=== PATIENT | female | born 1930 | race Caucasian/White ===

== ENCOUNTER 2017-09-25 10:17 | Emergency (ER) | payer OTHER ==
[~2017-09-25] VITALS: Ht 162.6 cm; Wt 61.5 kg
[~2017-09-25 10:17] MED LIST: AMLO5TAB96 PO; LOVA20TA PO; NAPR250T57 PO; PANT20 PO; PERI8.6T PO; ULTR50TA PO
[2017-09-25 10:20] VITALS: BP 170/74; PULSE 83; RESP 16; TEMP 99.1; O2SAT 97
[2017-09-25] MEDS ORDERED: PANT40TA3 PO (10:36)
[2017-09-25] MEDS ORDERED: AMLO5TAB2 PO (10:36)
[2017-09-25] MEDS ORDERED: LOVA20TA PO (10:36)
--- NOTE | 2017-09-25 11:56 | PD ---
HPI Chief Complaint: Musculoskeletal Complaint Time Seen by Provider: 10:31 Travel History International Travel<30 days: No Contact w/Intl Traveler<30days: No Traveled to known affect area: No History of Present Illness HPI This is a 86-year-old female here with low back pain. Patient has a history of chronic low back pain with occasional flares requiring narcotic medication. She reports she usually receives spinal epidural injections and was scheduled to have one in August but due to insurance purposes she did not have the injection done. She has had increasing pain over the last week. She denies fever chills. No weight loss. Abdominal pain. No incontinence. No paresthesia or weakness of the extremity. Reports this pain is similar to her prior back pain which she has had for over 2 years. 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 She underwent chemotherapy and radiation in 2015. She had a negative PET scan 2017. The pain in the back is localized to the lumbar spine and reproducible to palpation. Pain is slightly improved with Tylenol. Symptom severity is moderate. PFSH Past Medical History Arthritis: Yes Asthma: Yes Autoimmune Disease: No Heart Rhythm Problems: Yes (PT HAS AN ENLARGED HEART) Cancer: Yes (uterine cancer) Cardiac Catheterization: No Cardiovascular Problems: No High Cholesterol: Yes Chemotherapy: Yes Congestive Heart Failure: No Diabetes: No Diminished Hearing: Yes (wears hearing aides, right hearing aide in ) Endocrine: No Gastrointestinal Disorders: Yes GERD: Yes Glaucoma: No Genitourinary: No Hepatitis: No Hiatal Hernia: Yes Hypertension: Yes Immune Disorder: No Medical other: Yes (reflux arthriits,BROKEN BIG TOE LEFT FOOT) Musculoskeletal: Yes (osteoporosis) Neurologic: No Psychiatric: No Reproductive: Yes (PARTIAL HYSTERECTOMY) Respiratory: No Immunizations Current: Yes Myocardial Infarction: No Thyroid Disease: No Past Surgical History Abdominal Surgery: Yes (abd tumor removed) AICD: No Cardiac Surgery: No Coronary Artery Bypass Graft: No Ear Surgery: No Endocrine Surgery: No Eye Surgery: Yes (CATARACT) Genitourinary Surgery: No Gynecologic Surgery: Yes (partial hysterectomy) Hysterectomy: Yes Joint Replacement: No Neurologic Surgery: Yes ("1997,tumor removed from in between brain and covering ") Oral Surgery: No Pacemaker: No Other Surgery: Yes (cranial tumor removed) Family History Family Myocardial Infarction: Yes Social History Alcohol Use: Yes (rare) Tobacco Use: No (former) Substance Use: No Allergies-Medications (Allergen,Severity, Reaction): Coded Allergies: No Known Allergies (Verified Adverse Reaction, Unknown, 09/25/17) Reported Meds & Prescriptions Reported Meds & Active Scripts Active Reported Pantoprazole (Pantoprazole Sodium) 40 Mg Tab 40 Mg PO DAILY Lovastatin 20 Mg Tab 20 Mg PO HS Amlodipine (Amlodipine Besylate) 5 Mg Tab 5 Mg PO DAILY Review of Systems Except as stated in HPI: all other systems reviewed are Neg General / Constitutional: No: Fever Eyes: No: Visual changes HENT: No: Headaches Cardiovascular: No: Chest Pain or Discomfort Respiratory: No: Shortness of Breath Gastrointestinal: No: Abdominal Pain Genitourinary: No: Dysuria Musculoskeletal: Positive: Pain (lumbar pain) Skin: No Rash Neurologic: No: Weakness Psychiatric: No: Depression Physical Exam Narrative GENERAL: Alert and well-appearing 86-year-old female SKIN: Warm and dry. HEAD: Atraumatic. Normocephalic. EYES: No injection or drainage. NECK: Supple CARDIOVASCULAR: Regular rate and rhythm. RESPIRATORY: No accessory muscle use. Clear to auscultation. Breath sounds equal bilaterally. GASTROINTESTINAL: Abdomen soft, non-tender, nondistended. Hepatic and splenic margins not palpable. No rebound or guarding MUSCULOSKELETAL: Extremities without clubbing, cyanosis, or edema. No obvious deformities. Patient ambulatory with steady gait NEUROLOGICAL: Awake and alert. No obvious cranial nerve deficits. Motor grossly within normal limits. Five out of 5 muscle strength in the arms and legs. Normal speech. BACK: No CVA tenderness. No rash. +TTP lumbar spine. Data Data Last Documented VS Vital Signs Date Time Temp Pulse Resp B/P (MAP) Pulse Ox O2 Delivery O2 Flow Rate FiO2 09/25/17 10:20 99.1 83 16 170/74 (106) [address] Lumb Spine W/O Contrast (09/25/17 10:45) Oxycodone-Acetamin 5-325 Mg (Percocet (09/25/17 12:30) MDM Medical Decision Making Medical Screen Exam Complete: Yes Emergency Medical Condition: Yes Differential Diagnosis Lumbar strain, herniated disc, metastatic CA Narrative Course This is a 86-year-old female here with acute low back pain. She has a history of chronic back pain reports this pain is similar and in the same location as her previous episodes. She has a normal neurologic exam. She has tenderness of the lumbar spine exclusively. 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 She had a negative PET scan last year. She has a follow-up appointment this month. CT lumbar spine: No acute findings Discussed the findings patient. On reassessment patient is reporting symptom improvement. She'll be discharged home with a prescription for [place]. She agrees to follow up with her primary doctor this week for recheck. Diagnosis Primary Impression: Back pain Qualified Codes: M54.5 - Low back pain Referrals: Primary Care Physician Additional Instructions: Medication as directed. Follow-up with her primary doctor. Return if he developed new or worsening symptoms. Scripts Hydrocodone-Acetaminophen ([place]) 5 Mg-325 Mg Tab 1 TAB PO Q6H Y for PAIN, #12 TAB 0 Refills Prov: Marnie Ruiz 09/25/17 Disposition: 01 DISCHARGE HOME Condition: Stable Marnie Ruiz Sep 25, 2017 11:56
--- NOTE | 2017-09-25 12:12 | RADRPT ---
EXAM DATE/TIME: 09/25/2017 11:27 [facility] COMPARISON: CT LUMBAR SPINE W/O CONTRAST, December 27, 2014, 11:36. INDICATIONS : Lower back pain, difficulty ambulating. RADIATION DOSE: 36.11 CTDIvol (mGy) MEDICAL HISTORY : Hypertension. Hernia, hiatal. Gastroesophageal reflux disease.Uterine cancer. SURGICAL HISTORY : Hysterectomy. ENCOUNTER: Initial ACUITY: 2 weeks PAIN SCALE: 8/10 LOCATION: Bilateral lower back. TECHNIQUE: Volumetric scanning of the lumbar spine was performed. Multiplanar reconstructions in the sagittal, coronal and oblique axial planes were performed. Using automated exposure control and adjustment of the mA and/or kV according to patient size, radiation dose was kept as low as reasonably achievable t o obtain optimal diagnostic quality images. DICOM format image data is available electronically for review and comparison. FINDINGS: There is diffuse osteopenia. Vertebral body height is maintained. No evidence of spondylolisthesis. Mild left lumbar scoliosis is stable from prior. No fractures seen. Advanced hypertrophic changes in the posterior elements of L5-S1. No evidence of pars defect. Calcification within the L4-5 disc is similar to prior. T12-L1: The thecal sac has a normal diameter. No evidence of disc bulge or protrusion. The neural foramina are patent bilaterally. L1-L2: The thecal sac has a normal diameter. No evidence of disc bulge or protrusion. The neural foramina are patent bilaterally. L2-L3: The thecal sac has a normal diameter. No evidence of disc bulge or protrusion. The neural foramina are patent bilaterally. L3-L4: The thecal sac has a normal diameter. No evidence of disc bulge or protrusion. The neural foramina are patent bilaterally. L4-L5: Broad-based bulging of the disc flattens the ventral margin of the thecal sac. There is asymmetric e xtension into the neural foramen on the right without evidence of neural impingement. The neural for amen are patent. The overall appearance is unchanged when compared to 2014. L5-S1: Broad-based bulging of the disc causes minimal flattening of the ventral margin of the thecal sac, un changed from prior. CONCLUSION: 1. Mild disc bulging L4-5 and L5-S1 with asymmetric extension into the neural foramen on the right at L4-5, stable in configuration compared to December 2014. 2. Stable mild left lumbar scoliosis. Osteopenia. Deangelo Gregory MD on September 25, 2017 at 12:00 Board Certified Radiologist. This report was verified electronically.
[2017-09-25] MEDS ORDERED: NORC5TAB PO (12:19)
[2017-09-25] MEDS ORDERED: oxyCODONE/ACETAMINOPHEN 5 MG/325 MG TAB PO ONE (12:30)
[2017-09-25] MEDS ORDERED: KETOROLAC TROMETHAMINE 60 MG/2 ML (IM) VIAL IM ONE (12:30)
== END 2017-09-25 12:37 | disposition home or self-care (01) ==
LOC: PHEFT 10:17
DX: M54.5 Low back pain (principal); M41.9 Scoliosis, unspecified; M19.90 Unspecified osteoarthritis, unspecified site; J45.909 Unspecified asthma, uncomplicated; E78.00 Pure hypercholesterolemia, unspecified; K21.9 Gastro-esophageal reflux disease without esophagitis; I10 Essential (primary) hypertension; M81.0 Age-related osteoporosis without current pathological fracture; Z87.891 Personal history of nicotine dependence
CPT/HCPCS: 72131; 96372; 99283; J1885

== ENCOUNTER 2017-12-14 11:53 | Observation (INO) | payer OTHER ==
[2017-12-14] VITALS (7 sets, daily range): BP systolic 139–168; BP diastolic 64–72; PULSE 66–92; RESP 16–20; TEMP 96.9–98.3; O2SAT 98–99
[~2017-12-14] VITALS: Ht 162.6 cm; Wt 59.1 kg
[~2017-12-14 11:53] MED LIST changes: +AMLO5TAB2 PO; -AMLO5TAB96 PO; -NAPR250T57 PO; +NORC5TAB PO; -PANT20 PO; +PANT40TA3 PO; -PERI8.6T PO; -ULTR50TA PO
--- NOTE | 2017-12-14 12:11 | PD ---
HPI Chief Complaint: Chest pain Time Seen by Provider: 12:04 Travel History International Travel<30 days: No Contact w/Intl Traveler<30days: No Traveled to known affect area: No History of Present Illness HPI 87-year-old female with history of squamous cell carcinoma of the vagina treated in 2014, reevaluated most recently in June 2017 and found to be without recurrence of disease, here for evaluation of chest pain. Patient reports that the pain started this morning after waking up. She has left-sided chest pain that she describes as sharp, radiates to her left shoulder and underneath her left shoulder blade. Pain is worse with movements, is moderate, improved with rest. She denies trauma. No dyspnea. No history of cardiac disease. No family history of cardiac disease. She is a non-smoker. No fevers or recent illness. No paresthesias or motor deficits. PFSH Past Medical History Arthritis: Yes Asthma: Yes Autoimmune Disease: No Heart Rhythm Problems: Yes (PT HAS AN ENLARGED HEART) Cancer: Yes (uterine cancer) Cardiac Catheterization: No Cardiovascular Problems: No High Cholesterol: Yes Chemotherapy: Yes Congestive Heart Failure: No Diabetes: No Diminished Hearing: Yes (wears hearing aides, right hearing aide in ) Endocrine: No Gastrointestinal Disorders: Yes GERD: Yes Glaucoma: No Genitourinary: No Hepatitis: No Hiatal Hernia: Yes Hypertension: Yes Immune Disorder: No Musculoskeletal: Yes (osteoporosis) Neurologic: No Psychiatric: No Reproductive: Yes (PARTIAL HYSTERECTOMY) Respiratory: No Immunizations Current: Yes Myocardial Infarction: No Thyroid Disease: No Past Surgical History Abdominal Surgery: Yes (abd tumor removed) AICD: No Cardiac Surgery: No Coronary Artery Bypass Graft: No Ear Surgery: No Endocrine Surgery: No Eye Surgery: Yes (CATARACT) Genitourinary Surgery: No Gynecologic Surgery: Yes (partial hysterectomy) Hysterectomy: Yes Joint Replacement: No Neurologic Surgery: Yes ("1997,tumor removed from in between brain and covering ") Oral Surgery: No Pacemaker: No Other Surgery: Yes (cranial tumor removed) Social History Alcohol Use: Yes (rare) Tobacco Use: No (former) Substance Use: No Allergies-Medications (Allergen,Severity, Reaction): Coded Allergies: No Known Allergies (Verified Adverse Reaction, Unknown, 12/14/17) Reported Meds & Prescriptions Reported Meds & Active Scripts Active Reported Multiple Vitamin 1 Tab 1 Tab PO DAILY Aspirin 81 (Aspirin) 81 Mg Tabdr 81 Mg PO DAILY Pantoprazole (Pantoprazole Sodium) 40 Mg Tab 40 Mg PO DAILY Lovastatin 20 Mg Tab 20 Mg PO HS Amlodipine (Amlodipine Besylate) 5 Mg Tab 5 Mg PO DAILY Review of Systems Except as stated in HPI: all other systems reviewed are Neg Physical Exam Narrative GENERAL: Well-developed, well-nourished, comfortable, no apparent distress. SKIN: Focused skin assessment warm/dry. No rash. HEAD: Atraumatic. Normocephalic. EYES: Pupils equal and round. No scleral icterus. No injection or drainage. ENT: Mucous membranes pink and moist. NECK: Trachea midline. No JVD. CARDIOVASCULAR: Regular rate and rhythm. Distal pulses brisk and equal bilaterally. RESPIRATORY: No accessory muscle use. Clear to auscultation. Breath sounds equal bilaterally. GASTROINTESTINAL: Abdomen soft, non-tender, nondistended. MUSCULOSKELETAL: No obvious deformities. No clubbing. No cyanosis. No edema. NEUROLOGICAL: Awake and alert. No obvious cranial nerve deficits. Motor grossly within normal limits. Normal speech. PSYCHIATRIC: Appropriate mood and affect; insight and judgment normal. Data Data Last Documented VS Vital Signs Date Time Temp Pulse Resp B/P (MAP) Pulse Ox O2 Delivery O2 Flow Rate FiO2 12/14/17 12:40 16 98 Room Air 12/14/17 12:10 72 12/14/17 11:58 98.3 152/72 (98) Orders Orders Ckmb (Isoenzyme) Profile (12/14/17 12:07) Complete Blood Count With Diff (12/14/17 12:07) Comprehensive Metabolic Panel (12/14/17 12:07) Magnesium (Mg) (12/14/17 12:07) Prothrombin Time / Inr (Pt) (12/14/17 12:07) Act Partial Throm Time (Ptt) (12/14/17 12:07) Troponin I (12/14/17 12:07) Lipase (12/14/17 12:07) Ecg Monitoring (12/14/17 12:07) Iv Access Insert/Monitor (12/14/17 12:07) Oximetry (12/14/17 12:07) Aspirin Chew (Aspirin Chew) (12/14/17 12:15) Sodium Chloride 0.9% Flush (Ns Flush) (12/14/17 12:15) Chest, Pa & Lat (12/14/17 12:07) D-Dimer (12/14/17 12:00) CKMB (12/14/17 12:00) CKMB% (12/14/17 12:00) Ct Pulmonary Angiogram (12/14/17 ) Iohexol 350 Inj (Omnipaque 350 Inj) (12/14/17 14:23) Electrocardiogram (12/14/17 11:56) Place In Observation (12/14/17 15:05) Activity Bed Rest With Brp (12/14/17 15:05) Vital Signs (Adult) Q4H (12/14/17 15:05) Cardiac Rhythm .As Directed (12/14/17 15:) Notify Dr: Other .PRN (12/14/17 15:05) Notify . Parameters (12/14/17 15:05) Resp Oxygen Nasal Cannula (12/14/17 ) Diet Npo (12/15/17 Breakfast) Diet Heart Healthy (12/14/17 Dinner) Ckmb (Isoenzyme) Profile (12/14/17 15:05) Ckmb (Isoenzyme) Profile (12/14/17 18:05) Troponin I (12/14/17 15:05) Troponin I (12/14/17 18:05) Electrocardiogram (12/14/17 15:05) Electrocardiogram (12/14/17 18:05) ^ Obtain (12/14/17 15:05) Sodium Chloride 0.9% Flush (Ns Flush) (12/14/17 15:15) Sodium Chloride 0.9% Flush (Ns Flush) (12/14/17 21:00) Acetaminophen (Tylenol) (12/14/17 15:15) Morphine Inj (Morphine Inj) (12/14/17 15:15) Nitroglycerin Sl (Nitrostat Sl) (12/14/17 15:15) Aspirin (Aspirin) (12/15/17 09:00) Search Specialist / Telemetry [email or web address] (12/14/17 15:05) Labs Laboratory Tests Test 12/14/17 12:00 White Blood Count 4.4 TH/MM3 Red Blood Count 4.03 MIL/MM3 Hemoglobin 11.5 GM/DL Hematocrit 35.1 % Mean Corpuscular Volume 87.1 FL Mean Corpuscular Hemoglobin 28.5 PG Mean Corpuscular Hemoglobin Concent 32.8 % Red Cell Distribution Width 14.3 % Platelet Count 213 TH/MM3 Mean Platelet Volume 8.3 FL Neutrophils (%) (Auto) 71.7 % Lymphocytes (%) (Auto) 15.6 % Monocytes (%) (Auto) 9.6 % Eosinophils (%) (Auto) 1.7 % Basophils (%) (Auto) 1.4 % Neutrophils # (Auto) 3.1 TH/MM3 Lymphocytes # (Auto) 0.7 TH/MM3 Monocytes # (Auto) 0.4 TH/MM3 Eosinophils # (Auto) 0.1 TH/MM3 Basophils # (Auto) 0.1 TH/MM3 CBC Comment DIFF FINAL Differential Comment Prothrombin Time 10.1 SEC Prothromb Time International Ratio 1.0 RATIO Activated Partial Thromboplast Time 25.7 SEC D-Dimer Quantitative (PE/DVT) 0.57 MG/L FEU Blood Urea Nitrogen 16 MG/DL Creatinine 0.68 MG/DL Random Glucose 122 MG/DL Total Protein 6.5 GM/DL Albumin 3.3 GM/DL Calcium Level 8.5 MG/DL Magnesium Level 2.2 MG/DL Alkaline Phosphatase 86 U/L Aspartate Amino Transf (AST/SGOT) 15 U/L Alanine Aminotransferase (ALT/SGPT) 21 U/L Total Bilirubin 0.3 MG/DL Sodium Level 144 MEQ/L Potassium Level 3.9 MEQ/L Chloride Level 112 MEQ/L Carbon Dioxide Level 25.4 MEQ/L Anion Gap 7 MEQ/L Estimat Glomerular Filtration Rate 82 ML/MIN Total Creatine Kinase 115 U/L Creatine Kinase MB 2.3 NG/ML Troponin I LESS THAN 0.02 NG/ML Lipase 108 U/L [facility] Medical Decision Making Medical Screen Exam Complete: Yes Emergency Medical Condition: Yes Medical Record Reviewed: Yes Interpretation(s) EKG: Sinus, rate 73, leftward axis, normal intervals, no acute ischemic normality. Differential Diagnosis ACS, pneumothorax, pericarditis, PE, pneumonia, musculoskeletal pain Narrative Course Initial vital signs show heart rate 72, blood pressure 152/72, pulse ox 99% on room air, oral temperature 98.3F. CBC: WBC 4.4, hemoglobin 11.5, hematocrit 35.1, platelets 213, neutrophils 72%. CMP is essentially unremarkable. Lipase is 108. Cardiac enzymes are negative. D-dimer 0.57. Chest x-ray: No acute disease. CT pulmonary angiogram: No central PE. Lobulated 3.5 cm right breast mass. Patient was made aware of all findings. She states she has had this breast mass evaluated in the past with mammography and it was benign. She still has pain under her left shoulder blade. This pain could be a chest pain/cardiac equivalent, she will be admitted to the chest pain center for further cardiac evaluation. She is amenable to this plan. Case discussed with hospitalist Dr. Telles who will admit the patient to the chest pain center. Diagnosis Primary Impression: Chest pain Qualified Codes: R07.9 - Chest pain, unspecified Admitting Information Admitting Physician Requests: Observation Haris Torre MD December 14, 2017 12:11
[2017-12-14] MEDS ORDERED: ASPIRIN 81 MG CHEW TAB PO ONE (12:15)
[2017-12-14] MEDS ORDERED: SODIUM CHLORIDE 0.9% FLUSH 10 ML FLUSH IVF PRN (12:15)
[2017-12-14 12:25] LABS: AUTOMATED NEUTROPHIL # 3.1 TH/MM3 (1.8-7.7); BASOPHIL # 0.1 TH/MM3 (0-0.2); BASOPHIL % 1.4 % (0.0-2.0); EOSINOPHIL # 0.1 TH/MM3 (0-0.4); EOSINOPHIL % 1.7 % (0.0-4.0); HEMATOCRIT 35.1 % (35.0-46.0); HEMOGLOBIN 11.5 GM/DL (11.6-15.3); LYMPH % 15.6 % (9.0-44.0); LYMPHOCYTE # 0.7 TH/MM3 (1.0-4.8); MEAN CELL VOLUME 87.1 FL (80.0-100.0); MEAN CORPUSCULAR HEMOGLOBIN 28.5 PG (27.0-34.0); MEAN CORPUSCULAR HGB CONC 32.8 % (32.0-36.0); MEAN PLATELET VOLUME 8.3 FL (7.0-11.0); MONO % 9.6 % (0.0-8.0); MONOCYTE # 0.4 TH/MM3 (0-0.9); NEUT % 71.7 % (16.0-70.0); PLATELET COUNT 213 TH/MM3 (150-450); RED BLOOD COUNT 4.03 MIL/MM3 (4.00-5.30); RED CELL DISTRIBUTION WIDTH 14.3 % (11.6-17.2); WHITE BLOOD COUNT 4.4 TH/MM3 (4.0-11.0)
[2017-12-14] MEDS ORDERED: ASPI1TAB57 PO (12:26)
[2017-12-14] MEDS ORDERED: MULTTAB67 PO (12:26)
[2017-12-14 12:44] LABS: CHLORIDE 112 MEQ/L (98-107); SODIUM (NA) 144 MEQ/L (136-145)
[2017-12-14 12:47] LABS: CALCIUM 8.5 MG/DL (8.5-10.1)
[2017-12-14 12:48] LABS: ALBUMIN 3.3 GM/DL (3.4-5.0); BICARBONATE 25.4 MEQ/L (21.0-32.0); BLOOD UREA NITROGEN 16 MG/DL (7-18); GLUCOSE,RANDOM 122 MG/DL (74-106); MAGNESIUM 2.2 MG/DL (1.5-2.5)
[2017-12-14 12:50] LABS: ALT (GPT) 21 U/L (10-53)
[2017-12-14 12:51] LABS: AST (GOT) 15 U/L (15-37); CREATININE 0.68 MG/DL (0.50-1.00); GLOMERULAR FILTRATION RATE 82 ML/MIN (>89)
[2017-12-14 12:52] LABS: TOTAL BILIRUBIN ADULT 0.3 MG/DL (0.2-1.0); TOTAL PROTEIN 6.5 GM/DL (6.4-8.2)
[2017-12-14 12:53] LABS: ALKALINE PHOSPHATASE 86 U/L (45-117); PROTHROMBIN TIME - PATIENT 10.1 SEC (9.8-11.6)
[2017-12-14 12:54] LABS: D-DIMER 0.57 MG/L FEU (0.00-0.50)
[2017-12-14 12:56] LABS: TROPONIN I LESS THAN 0.02 NG/ML (0.02-0.05)
--- NOTE | 2017-12-14 13:05 | RADRPT ---
EXAM DATE/TIME: 12/14/2017 12:48 [facility] COMPARISON: No previous studies available for comparison. INDICATIONS : Left side chest pains today MEDICAL HISTORY : None. SURGICAL HISTORY : None. ENCOUNTER: Initial ACUITY: 1 day PAIN SCORE: 6/10 LOCATION: Left chest FINDINGS: PA and lateral views of the chest demonstrate the lungs to be symmetrically aerated without evidence of mass, infiltrate or effusion. Granuloma left upper lobe. The cardiomediastinal contours are unre markable. Osseous structures are intact. CONCLUSION: No acute disease. Keegan Sheppard MD FACR on December 14, 2017 at 13:02 Board Certified Radiologist. This report was verified electronically.
[2017-12-14] MEDS ORDERED: IOHEXOL 350 MG/ML 10 ML VIAL (for RAD DIAG) IVCONTRAST ONE (14:23)
--- NOTE | 2017-12-14 14:40 | RADRPT ---
EXAM DATE/TIME: 12/14/2017 14:14 [facility] COMPARISON: No previous studies available for comparison. INDICATIONS : Left chest pain. IV CONTRAST: 65 cc Omnipaque 350 (iohexol) IV RADIATION DOSE: 9.19 CTDIvol (mGy) MEDICAL HISTORY : Hypertension. Uterine camcer. SURGICAL HISTORY : Hysterectomy. Cranial tumor removed. ENCOUNTER: Initial ACUITY: 1 day PAIN SCALE: 5/10 LOCATION: chest TECHNIQUE: Volumetric scanning of the chest was performed using a pulmonary embolism protocol MIP images were re constructed. Using automated exposure control and adjustment of the mA and/or kV according to patien t size, radiation dose was kept as low as reasonably achievable to obtain optimal diagnostic quality images. DICOM format image data is available electronically for review and comparison. Follow-up recommendations for detected pulmonary nodules are based at a minimum on nodule size and pa tient risk factors according to Fleischner Society Guidelines. FINDINGS: The lungs are clear. There is no central pulmonary emboli Mild compensated cardiomegaly No axillary adenopathy. No mediastinal adenopathy. Lobulated 3.5 cm right breast mass Degenerative changes thoracic spine. CONCLUSION: No central pulmonary emboli Lobulated 3.5 cm right breast mass Keegan Sheppard MD FACR on December 14, 2017 at 14:36 Board Certified Radiologist. This report was verified electronically.
[2017-12-14] MEDS ORDERED: MORPHINE SULFATE 4 MG/ML INJ IV PUSH PRN (15:15)
[2017-12-14] MEDS ORDERED: ACETAMINOPHEN 500 MG CPLT PO PRN (15:15)
[2017-12-14] MEDS ORDERED: NITROGLYCERIN 0.4 MG SL 25 TABS/BTL SL PRN (15:15)
[2017-12-14] MEDS ORDERED: SODIUM CHLORIDE 0.9% FLUSH 10 ML FLUSH IV FLUSH PRN (15:15)
--- NOTE | 2017-12-14 17:38 | HHI.HP ---
[facility] Primary Care Physician Mor Gomes MD Admission Diagnosis Chest Pain Diagnoses: (1) Chest pain Diagnosis: Principal Chief Complaint: Chest pain Travel History International Travel<30 Days: No Contact w/Intl Traveler <30 Da: No Traveled to Known Affected Are: No History of Present Illness 87-year-old female with known history of hypertension, hyperlipidemia , gastroesophageal reflux who presented to the hospital because of left anterior chest and left shoulder pain. Patient was in her normal state of health until this morning when she was waiting for her breakfast to be served she developed a pain in the left anterior chest and into her left shoulder. Patient states that it was a pain that was 7/10 on a pain scale that remained constant and agonized by movement. Patient states that whenever she moved the pain would get worse. She stated the restaurant and ate her meal and went home. She states that she is sitting there reading the paper and whenever she tried to move, sit up she would have the pain that would be behind her left shoulder blade and into her left anterior chest. She states that the pain is constantly there at approximately 3/10 on pain scale and does worsen to 7/10 on a pain scale whenever she moves. Patient denies any nausea, vomiting, diaphoresis, shortness of breath. Patient indicates that she has had some lightheadedness. 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 Social History Patient denies any tobacco, alcohol or illicit drug Physical Exam Vital Signs Vital Signs Date Time Temp Pulse Resp B/P (MAP) Pulse Ox O2 Delivery O2 Flow Rate FiO2 12/14/17 16:59 97.8 66 20 168/71 (103) 99 12/14/17 16:31 99 21 12/14/17 16:27 12/14/17 15:30 68 16 142/68 (92) 99 Room Air 12/14/17 12:40 16 98 Room Air 12/14/17 12:10 72 Room Air 12/14/17 11:58 98.3 72 16 152/72 (98) 99 Physical Exam GENERAL: Well-developed, well-nourished, in no acute distress. alert and orientated HEENT: Head is normocephalic without any lesions or masses noted. Facial features are symmetric. Eyes: Pupils equal round reactive to light. Extraocular muscles are intact. Conjunctivae were clear. Oropharyngeal: Pharynx without any erythema edema. Tongue is midline without deviation. Buccal mucosa is moist without any masses or lesions NECK: Supple without any masses. Trachea midline no deviation. No JVD, no bruits are appreciated CARDIAC: Regular rhythm, regular rate. S1/S2 are heard. No murmurs gallops or rubs. LUNGS: Clear to auscultation bilaterally. No wheeze, rhonchi or rales. No use of accessory muscles on inspiration or expiration. ABDOMEN: Soft, nontender. Nondistended. Bowel sounds heard in all 4 quadrants. No organomegaly or masses. Negative rebound, negative guarding EXTREMITIES: No edema, pulses are equal bilaterally. No cyanosis or clubbing NEUROLOGY: Mood and affect appear appropriate. Cranial nerves II through XII grossly intact. Muscle strength 5/5 in upper and lower extremities bilaterally. Deep tendon reflexes are 2+ in upper and lower extremities bilaterally. Laboratory Laboratory Tests Test 12/14/17 12:00 White Blood Count 4.4 Red Blood Count 4.03 Hemoglobin 11.5 Hematocrit 35.1 Mean Corpuscular Volume 87.1 Mean Corpuscular Hemoglobin 28.5 Mean Corpuscular Hemoglobin Concent 32.8 Red Cell Distribution Width 14.3 Platelet Count 213 Mean Platelet Volume 8.3 Neutrophils (%) (Auto) 71.7 Lymphocytes (%) (Auto) 15.6 Monocytes (%) (Auto) 9.6 Eosinophils (%) (Auto) 1.7 Basophils (%) (Auto) 1.4 Neutrophils # (Auto) 3.1 Lymphocytes # (Auto) 0.7 Monocytes # (Auto) 0.4 Eosinophils # (Auto) 0.1 Basophils # (Auto) 0.1 CBC Comment DIFF FINAL Differential Comment Prothrombin Time 10.1 Prothromb Time International Ratio 1.0 Activated Partial Thromboplast Time 25.7 D-Dimer Quantitative (PE/DVT) 0.57 Blood Urea Nitrogen 16 Creatinine 0.68 Random Glucose 122 Total Protein 6.5 Albumin 3.3 Calcium Level 8.5 Magnesium Level 2.2 Alkaline Phosphatase 86 Aspartate Amino Transf (AST/SGOT) 15 Alanine Aminotransferase (ALT/SGPT) 21 Total Bilirubin 0.3 Sodium Level 144 Potassium Level 3.9 Chloride Level 112 Carbon Dioxide Level 25.4 Anion Gap 7 Estimat Glomerular Filtration Rate 82 Total Creatine Kinase 115 Creatine Kinase MB 2.3 Troponin I LESS THAN 0.02 Lipase 108 Result Diagram: 12/14/17 1200 12/14/17 1200 Imaging Last Impressions Chest X-Ray 12/14/17 1207 Signed Impressions: Service Date/Time: Thursday, December 14, 2017 12:48 - CONCLUSION: No acute disease. Keegan Sheppard MD FACR CT Angiography 12/14/17 0000 Signed Impressions: Service Date/Time: Thursday, December 14, 2017 14:14 - CONCLUSION: No central pulmonary emboli Lobulated 3.5 cm right breast mass Keegan Sheppard MD FACR Caprini VTE Risk Assessment Caprini VTE Risk Assessment: Mod/High Risk (score >= 2) Caprini Risk Assessment Model Point Value = 1 Point Value = 2 Point Value = 3 Point Value = 5 Age 41-60 Minor surgery BMI > 25 kg/m2 Swollen legs Varicose veins or History of unexplained or recurrent spontaneous Oral contraceptives or hormone replacement Sepsis (< 1 month) Serious lung disease, including pneumonia (< 1 month) Abnormal pulmonary function Acute myocardial infarction Congestive heart failure (< 1 month) History of inflammatory bowel disease Medical patient at bed rest Age 61-74 Arthroscopic surgery Major open surgery (> 45 min) Laparoscopic surgery (> 45 min) Malignancy Confined to bed (> 72 hours) Immobilizing plaster cast Central venous access Age >= 75 History of VTE Family history of VTE Factor V Leiden Prothrombin [id number] Lupus anticoagulant Anticardiolipin antibodies Elevated serum homocysteine Heparin-induced thrombocytopenia Other congenital or acquired thrombophilia Stroke (< 1 month) Elective arthroplasty Hip, pelvis, or leg fracture Acute spinal cord injury (< 1 month) Prophylaxis Regimen Total Risk Factor Score Risk Level Prophylaxis Regimen 0-1 Low Early ambulation 2 Moderate Order ONE of the following: *Sequential Compression Device (SCD) *Heparin 5000 units SQ BID 3-4 Higher Order ONE of the following medications: *Heparin 5000 units SQ TID *Enoxaparin/Lovenox 40 mg SQ daily (WT < 150 kg, CrCl > 30 mL/min) *Enoxaparin/Lovenox 30 mg SQ daily (WT < 150 kg, CrCl > 10-29 mL/min) *Enoxaparin/Lovenox 30 mg SQ BID (WT < 150 kg, CrCl > 30 mL/min) AND/OR *Sequential Compression Device (SCD) 5 or more Highest Order ONE of the following medications: *Heparin 5000 units SQ TID (Preferred with Epidurals) *Enoxaparin/Lovenox 40 mg SQ daily (WT < 150 kg, CrCl > 30 mL/min) *Enoxaparin/Lovenox 30 mg SQ daily (WT < 150 kg, CrCl > 10-29 mL/min) *Enoxaparin/Lovenox 30 mg SQ BID (WT < 150 kg, CrCl > 30 mL/min) AND *Sequential Compression Device (SCD) Assessment and Plan Assessment and Plan Chest pain, atypical -Patient with increased risk factors to include age, hypertension, hyperlipidemia, family history -We will continue ruled patient out for an acute coronary event with serial cardiac enzymes and serial EKGs -We will pursue myocardial perfusion study to rule out any underlying ischemia -Continue aspirin, nitroglycerin as needed -Continue monitor telemetry Hypertension, hyperlipidemia -Continue home medications DVT prevention -Sequential compression devices Problem Qualifiers (1) Chest pain: Qualified Codes: R07.9 - Chest pain, unspecified Nasir Trent December 14, 2017 17:37
[2017-12-14 17:58] LABS: TROPONIN I LESS THAN 0.02 NG/ML (0.02-0.05)
[2017-12-14] MEDS: SODIUM CHLORIDE 0.9% FLUSH 10 ML FLUSH IV FLUSH SCH (20:49)
[2017-12-14 20:59] LABS: TROPONIN I LESS THAN 0.02 NG/ML (0.02-0.05)
[2017-12-14] MEDS ORDERED: MELATONIN 5 MG TAB PO ONE (23:30)
[2017-12-15] VITALS: BP 130/59; PULSE 85; RESP 18; TEMP 97.4; O2SAT 97
[2017-12-15 04:00] VITALS: BP 124/59; PULSE 85; RESP 17; TEMP 97.7; O2SAT 97
--- NOTE | 2017-12-15 07:22 | HHI.PR ---
Subjective Remarks Have remained stable, patient afebrile. Patient seen and examined today for follow-up on chest discomfort. Patient states that she still experiencing some mild discomfort whenever she moves. Otherwise no other symptoms. Vital signs Objective Vitals Vital Signs Date Time Temp Pulse Resp B/P (MAP) Pulse Ox O2 Delivery O2 Flow Rate FiO2 12/15/17 04:00 97.7 85 17 124/59 (80) 97 12/15/17 00:00 97.4 85 18 130/59 (82) 97 12/14/17 20:00 66 12/14/17 20:00 96.9 92 19 139/64 (89) 98 12/14/17 19:59 98 21 12/14/17 16:59 97.8 66 20 168/71 (103) 99 12/14/17 16:31 99 21 12/14/17 16:27 12/14/17 15:30 68 16 142/68 (92) 99 Room Air 12/14/17 12:40 16 98 Room Air 12/14/17 12:10 72 Room Air 12/14/17 11:58 98.3 72 16 152/72 (98) 99 Result Diagram: 12/14/17 1200 12/14/17 1200 Objective Remarks GENERAL: Well-developed, well-nourished, in no acute distress. alert and orientated HEENT: Head is normocephalic without any lesions or masses noted. Facial features are symmetric. Eyes: Extraocular muscles are intact. Conjunctivae were clear. NECK: Supple without any masses. Trachea midline no deviation. No JVD, CARDIAC: Regular rhythm, regular rate. S1/S2 are heard. No murmurs gallops or rubs. LUNGS: Clear to auscultation bilaterally. No wheeze, rhonchi or rales. No use of accessory muscles on inspiration or expiration. ABDOMEN: Soft, nontender. Nondistended. Bowel sounds heard in all 4 quadrants. No organomegaly or masses. Negative rebound, negative guarding EXTREMITIES: No edema, pulses are equal bilaterally. No cyanosis or clubbing NEUROLOGY: Mood and affect appear appropriate. Cranial nerves II through XII grossly intact. Moving all extremities, speech is clear Urinary Catheter: No Vascular Central Line Catheter: No A/P Assessment and Plan Chest pain, atypical -Patient with increased risk factors to include age, hypertension, hyperlipidemia, family history -Patient has been ruled out for acute coronary event with serial cardiac enzymes remain negative -Serial EKGs were performed which did not indicate any acute abnormality or any changes -Myocardial perfusion study was performed and indicated no signs of reversible ischemia, low risk -Continue aspirin, nitroglycerin as needed -Continue monitor telemetry Hypertension, hyperlipidemia -Continue home medications DVT prevention -Sequential compression devices Discharge Planning Discharge home in stable condition Activity: Ad александр. Diet: Healthy heart diet Medication per medication reconciliation Follow-up with primary medical doctor in 1 week Nasir Trent December 15, 2017 07:22
[2017-12-15] MEDS: SODIUM CHLORIDE 0.9% FLUSH 10 ML FLUSH IV FLUSH SCH (07:57)
[2017-12-15 08:00] VITALS: O2SAT 99
[2017-12-15 08:10] VITALS: PULSE 67
[2017-12-15 08:58] VITALS: BP 131/70; PULSE 68; RESP 18; TEMP 97.4; O2SAT 96
[2017-12-15] MEDS ORDERED: ASPIRIN 325 MG TAB PO SCH (09:00)
[2017-12-15] MEDS ORDERED: REGADENOSON INJ 0.4 MG/5 ML SYR IV ONE (11:30)
--- NOTE | 2017-12-15 12:43 | RADRPT ---
EXAM DATE/TIME: 12/15/2017 11:17 [facility] COMPARISON: No previous studies available for comparison. INDICATIONS : Left sided chest pain radiating to left shoulder. Angina. DOSE: 25.4 mCi Tc99m Myoview at stress. 8.5 mCi Tc99m Myoview at rest. 0.4 mg Lexiscan STRESS SYMPTOMS: Dyspnea and chest pressure. EJECTION FRACTION: > 70% MEDICAL HISTORY : Gastroesophageal reflux disease. Hypertension. SURGICAL HISTORY : Hysterectomy. ENCOUNTER: Initial ACUITY: 1 day PAIN SCALE: 6/10 LOCATION: Substernal chest TECHNIQUE: The patient underwent pharmacologic stress with infusion of prescribed dose. Continuous ECG tracing was monitored during stress. Gated SPECT imaging was performed after stress and conventional SPECT i maging was performed at rest. The examination was performed on a SPECT/CT scanner, both attenuation and non-corrected datasets were reviewed. FINDINGS: DISTRIBUTION: The maximum perfused segment at stress is in the inferior wall. PERFUSION STUDY: The pattern of perfusion at stress is within normal limits. GATED STUDY: There is intact wall motion and thickening without hypokinetic or dyskinetic segments. CONCLUSION: 1. No reversible perfusion defects to suggest ischemia. 2. The normal ejection fraction. RISK CATEGORY: Low (<1% Annual Mortality Rate) Jose Feng MD on December 15, 2017 at 12:39 Board Certified Radiologist. This report was verified electronically.
--- NOTE | 2017-12-15 12:45 | HHI.DCPOC ---
Discharge Care Plan Diagnosis: (1) Chest pain Goals to Promote Your Health * To prevent worsening of your condition and complications * To maintain your health at the optimal level Directions to Meet Your Goals Take your medications as prescribed Follow your dietary instruction Follow activity as directed Keep your appointments as scheduled Take your immunizations and boosters as scheduled If your symptoms worsen call your PCP, if no PCP go to Urgent Care Center or Emergency Room Smoking is Dangerous to Your Health. Avoid second hand smoke Call the 24-hour hour crisis hotline for domestic abuse at Nasir Trent December 15, 2017 12:45
[2017-12-15 13:12] VITALS: BP 144/75; PULSE 67; RESP 18; TEMP 96.3; O2SAT 94
--- NOTE | 2017-12-15 13:53 | TR ---
Date Performed: 12/15/2017 Time Performed: 11:41:17 DOCTOR: Sam Schulz DRUG LIST: CLINICAL HISTORY: CHEST PAIN REASON FOR TEST: Chest pain REASON FOR ENDING: OBSERVATION: CONCLUSION: COMMENTS: Lexiscan stress test was performed under standard four minute protocol. Radionuclide was injected one minute prior to ending the test. No electrocardiographic abormalities were present t o suggest ischemia. Nuclear imaging and interpretation are pending.
--- NOTE | 2017-12-15 20:19 | EKG ---
Date Performed: 12/14/2017 Time Performed: 11:56:45 PTAGE: 87 years EKG: Sinus rhythm MARKED LEFT AXIS DEVIATION Left anterior fasicular block ABNORMAL ECG PREVIOUS TRACING : 10/28/2013 07.54 DOCTOR: Kush Wagner Interpretating Date/Time 12/15/2017 20:18:12
--- NOTE | 2017-12-15 20:21 | EKG ---
Date Performed: 12/14/2017 Time Performed: 20:11:52 PTAGE: 87 years EKG: Sinus rhythm MARKED LEFT AXIS DEVIATION Left anterior fasicular block. ABNORMAL ECG PREVIOUS TRACING : 12/14/2017 17.08 DOCTOR: Kush Wagner Interpretating Date/Time 12/15/2017 20:19:35
--- NOTE | 2017-12-15 20:21 | EKG ---
Date Performed: 12/14/2017 Time Performed: 17:08:40 PTAGE: 87 years EKG: Sinus rhythm BORDERLINE LEFT AXIS DEVIATION Consider myocardial infarction-age indeterminate. Left anterior fasic ular block. BORDERLINE ECG PREVIOUS TRACING : 12/14/2017 11.56 DOCTOR: Kush Wagner Interpretating Date/Time 12/15/2017 20:19:18
== END 2017-12-15 14:16 | disposition home or self-care (01) ==
LOC: PHED 11:53 → PHEDA 15:14 → PH3B 16:21
PROVIDERS: ADMIT Hospitalist; ATTEND Hospitalist
DX: R07.89 Other chest pain (principal); I11.9 Hypertensive heart disease without heart failure; I51.7 Cardiomegaly; E78.5 Hyperlipidemia, unspecified; R42 Dizziness and giddiness; K21.9 Gastro-esophageal reflux disease without esophagitis; R94.31 Abnormal electrocardiogram [ECG] [EKG]; J45.909 Unspecified asthma, uncomplicated; N63.10 Unspecified lump in the right breast, unspecified quadrant; H91.90 Unspecified hearing loss, unspecified ear; M81.0 Age-related osteoporosis without current pathological fracture; M19.90 Unspecified osteoarthritis, unspecified site; Z85.42 Personal history of malignant neoplasm of other parts of uterus; Z85.44 Personal history of malignant neoplasm of other female genital organs; Z87.891 Personal history of nicotine dependence; Z79.899 Other long term (current) drug therapy; Z79.82 Long term (current) use of aspirin
CPT/HCPCS: 71046; 71275; 78452; 80053; 82550; 82552; 83690; 83735; 84484; 85025; 85379; 85610; 85730; 93005; 93017; 99285; A9502; G0378; J2785; Q9967